=== PATIENT | male | born 1960 | race Caucasian/White ===

== ENCOUNTER → 2016-11-21 | Outpatient (CLI) | payer BC, OTHER ==
--- NOTE | 2016-11-21 19:51 | CT ---
EXAMINATION TYPE: CT angio chest DATE OF EXAM: 11/21/2016 7:16 PM COMPARISON: NONE HISTORY: Productive cough and elevated d-dimer. CT DLP: 432.50 mGycm Automated exposure control for dose reduction was used. CONTRAST: CTA scan of the thorax is performed with IV Contrast, patient injected with 79 mL of Omnipaque 350, p ulmonary embolism protocol. . FINDINGS: LUNGS: The lungs are grossly clear, there is no concerning parenchymal mass or nodule identified. T here is no pleural effusion or pneumothorax seen. The tracheobronchial tree is patent. MEDIASTINUM: There is satisfactory enhancement of the pulmonary artery and its branches, there is no CT evidence for pulmonary embolism. There are no greater than 1 cm hilar or mediastinal lymph nodes. No pericardial effusion is seen. There are prominent coronary calcifications. There is no cardiom egaly. Pericardial space is negative. VISUALIZED SUBDIAPHRAGMATIC STRUCTURES: Cholelithiasis is noted in an otherwise unremarkable gallblad chace. IMPRESSION: 1. NO ACUTE PROCESS; NEGATIVE FOR PULMONARY EMBOLISM. 2. INCIDENTAL: PROMINENT CORONARY CALCIFICATIONS NOTED.
== END | disposition home or self-care (01) ==
LOC: RADCTMAIN 18:49
PROVIDERS: ATTEND Nurse Practitioner Family
DX: I25.10 Atherosclerotic heart disease of native coronary artery without angina pectoris (principal); R79.1 Abnormal coagulation profile
CPT/HCPCS: 71275; Q9967